=== PATIENT | female | born 1950 | race Caucasian/White ===

== ENCOUNTER 2017-03-22 13:22 | Inpatient (IN) | payer OTHER ==
--- NOTE | ~2017-03-22 | OP ---
Record Of Operation [facility] [address] [place]. 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 POSTOPERATIVE DIAGNOSES: 1. Right SFA mid segment 95% obstruction. 2. Right profunda femoral artery pseudoaneurysm, incidental finding. PROCEDURES: 1. Abdominal aortogram with right lower extremity runoff. 2. Superselective catheterization of the right SFA and popliteal artery with direct arteriography. 3. Atherectomy of the right SFA followed by a 5 x 6 angioplasty and 6 x 60 smart stent. 4. Catheterization of the profunda femoral artery with angiography and a 5 x 50 Viabahn stent. ANESTHESIA: Local MAC. COMPLICATIONS: None. INDICATION FOR PROCEDURE: Secondary to this very pleasant female presenting with evidence of severe peripheral vascular disease of the right lower extremity. Recommendations were made for arteriography to further define this and repair this if appropriate. Risks and benefits were discussed. Consent was obtained. DETAILS OF PROCEDURE: The patient was brought to the endovascular operating room, placed in supine position, prepped and draped in routine sterile fashion to the bilateral groin region, the entire right lower leg. The left superficial margin was catheterized with a micropuncture needle followed by a wire and a sheath arteriogram. The catheter was then advanced into the abdominal aorta, and AP abdominal aortogram was performed showing a widely patent infrarenal aorta, patent common external iliac arteries bilaterally. The catheter was then advanced from the left side of the right common femoral. Arteriogram demonstrated widely patent proximal superficial femoral artery. However, in the mid to distal segment, there was evidence of a large plaque spiraling in nature with a critical 95% obstruction. 3000 units of heparin was given and allowed to circulate. Arteriogram demonstrated continued stenosis. A wire was passed across this area. Atherectomy was then performed followed by a 5 x 6 angioplasty. Completion imaging showed a spiraling dissection of this area and a stent was indicated, and a 6 x 60 smart stent was passed, positioned and deployed adequately reconstructing the segment. With this completed, with the ACU catheter, performed additional arteriogram proximally and noted evidence of a fairly large profunda femoral artery, and a pseudoaneurysm which was an incidental finding. This was then catheterized and measurements were taken. A 5 x 50 Viabahn stent was passed, positioned and deployed adequately reconstructing the main profunda femoral artery and blocking the pseudoaneurysm. At this point, wires, catheters, and sheaths were removed. The left groin Record Of [facility] [address] [facility] [place]. [address] NAME: CHINA BONNER : 52 STATUS : DIS IN PAT#: [id number] AGE: 66 ADM/REG DATE : 03/22/17 MR#: [id number] REPORT SERV DATE: 06/02/17 DICTATED BY: BRADY MACIAS DATE: 06/02/17 REPORT STATUS : Draft TRANSCRIBED BY: YOCASTA DATE: 06/02/17 was then closed with a [employer]. ROBERT/YOCASTA Brady Macias M.D. / [id number] CC: Jorje García M.D.
--- NOTE | ~2017-03-22 | DS ---
Discharge Summary [facility] [address] [place]. [address] NAME: CHINA BONNER : 52 STATUS : DIS IN PAT#: [id number] AGE: 66 ADM/REG DATE : 03/22/17 MR#: [id number] REPORT SERV DATE: 04/04/17 DICTATED BY: BRADY MACIAS DATE: 04/04/17 REPORT STATUS : Draft TRANSCRIBED BY: YOCASTA DATE: 04/04/17 Data Collection from hospitalization DISCHARGE DIAGNOSIS(ES): 1. Right groin pseudoaneurysm. 2. Hypertension. 3. Congestive heart failure. 4. Chronic obstructive pulmonary disease/bronchitis. 5. Hiatal hernia. 6. Tobacco use. 7. Hyperlipidemia. 8. Anxiety and depression. CONSULTATIONS: None. PROCEDURES PERFORMED: 1. Abdominal aortogram, atherectomy, percutaneous right distal superficial femoral artery, V[employer] right distal superficial femoral artery, stent placement right proximal superficial femoral artery, 03/24/2017. 2. Venous Doppler ultrasound of the right groin, 03/22/2017. 3. Focused ultrasound examination, right inguinal region, 03/23/2017. 4. Right groin Doppler ultrasound, 03/24/2017. MEDICATIONS: ProAir two puffs via inhaler as needed, aspirin 81 mg daily, Plavix 75 mg daily, Prozac 10 mg daily, Cozaar 25 mg daily, Toprol-XL 12.5 mg daily, and fish oil 1200 mg daily. CONDITION AT DISCHARGE: Stable. DISPOSITION: The patient was discharged home on an 1800-calorie cardiac/diabetic diet with activities as instructed. She would follow up with me as instructed. HOSPITAL COURSE: This is a 66-year-old female who presented with a chief complaint of swelling in the groin. She is status post a surgical procedure and developed swelling from her groin after ambulating to the bathroom twice. She was neurologically intact. Her lungs were clear. The right groin was swollen. She was given Percocet for pain. A venous Doppler ultrasound of the right lower extremity/right groin was performed. She had a small 5 x 7 mm pseudoaneurysm anterior to the right common femoral artery with a 2 mm diameter and length neck of the pseudoaneurysm. The patient had undergone a cardiac catheterization. Focussed ultrasound examination of the right inguinal region had shown small 1.2 x 0.7 cm pseudoaneurysm anterior to the right common femoral artery with 3 mm width of the neck and 3 mm length of the neck. On 03/24/2017, she underwent recheck of right groin pseudoaneurysm, right groin Doppler ultrasound was performed. It revealed similar appearance of the right groin pseudoaneurysm measuring up to 1.8 x 0.8 cm with neck measuring up to 0.22 cm in width x 0.28 cm in length. Treatment options were discussed, and it was elected to proceed with surgical intervention. She was taken to the endovascular operating room where she underwent the above-mentioned procedure. She tolerated this well. There were no complications. Discharge planning was performed. On 03/25/2017, she was alert and sitting up. She did Discharge Summary [place] [id number] [facility] [place]. [address] NAME: CHINA BONNER : 52 STATUS : DIS IN PAT#: [id number] AGE: 66 ADM/REG DATE : 03/22/17 MR#: [id number] REPORT SERV DATE: 04/04/17 DICTATED BY: BRADY MACIAS DATE: 04/04/17 REPORT STATUS : Draft TRANSCRIBED BY: YOCASTA DATE: 04/04/17 complain of some gastroesophageal reflux disease. The right and left groin were bandaged. She had 2+ dorsalis pedis pulses bilaterally. She could move her toes. The IV was going to be removed. We would remove the groin dressing and place a Band-Aid. Discharge instructions were given. Due to her improved and stable condition, she was discharged home with the above-stated instructions. Information collected by: Carli Posey I submit the above information as my discharge summary. TG/MODL Brady Macias M.D. / [id number] CC: Jorje García M.D.
[2017-03-22 11:49] LABS: BASOPHILS 0.6 %; BASOPHILS ABSOLUTE 0.04 10/3/uL (0.0-0.16); EOSINOPHILS 1.9 %; EOSINOPHILS ABSOLUTE 0.12 10/3/uL (0.0-0.53); HEMATOCRIT 41.7 % (36.0-48.0); HEMOGLOBIN 14.3 g/dL (12.0-16.0); IMMATURE GRANULOCYTES 0.2 %; IMMATURE GRANULOCYTES ABSOLUTE 0.01 10/3/uL (0.0-0.11); LYMPHOCYTES 26.9 %; LYMPHOCYTES ABSOLUTE 1.74 10/3/uL (0.67-4.30); MEAN CORPUS HGB CONC 34.3 g/dL (32.0-36.0); MEAN CORPUSCULAR HEMOGLOB 31.6 pg (26.0-34.0); MEAN CORPUSCULAR VOLUME 92.3 fL (80-100); MEAN PLATELET VOLUME 9.3 fL (9.2-13.0); MONOCYTES 10.2 %; MONOCYTES ABSOLUTE 0.66 10/3/uL (0.21-1.20); NEUTROPHILS 60.2 %; PLATELET COUNT 257 10/3/uL (150-400); RED CELL COUNT 4.52 10/6/uL (4.0-5.6); WHITE BLOOD CELLS 6.5 10/3/uL (4.5-10.5)
[2017-03-22 11:50] LABS: MANUAL DIFF NO %
[2017-03-22 12:01] LABS: PROTIME (NOT ORD) 13.3 SEC (12.0-14.5)
[2017-03-22 12:02] LABS: BUN (BLOOD UREA NITROGEN) 13 MG/DL (6-23); CALCIUM, SERUM 9.4 MG/DL (8.5-10.4); CHLORIDE, SERUM 109 MMOL/L (96-112); CO2 (CARBON DIOXIDE) 28 MMOL/L (24-34); CREATININE 0.72 MG/DL (0.55-1.02); GFR AFRICAN AMERICAN 102 ML/MIN (>=60); GFR NON AFRICAN AMERICAN 88 ML/MIN (>=60); GLUCOSE, SERUM 103 MG/DL (60-99); POTASSIUM, SERUM 4.5 MMOL/L (3.5-5.3); SODIUM, SERUM 143 MMOL/L (135-148)
[~2017-03-22 13:22] MED LIST: ASAB PO; FISH OIL1200 MG PO; IMDUR30 PO; KLONO5 PO; PRIN5 PO; PROZ10 PO; TOPXL25 PO
[2017-03-22] MEDS ORDERED: PLAVIX PO (15:57)
[2017-03-22] MEDS ORDERED: PROAIR HFA INH (15:58)
[2017-03-22] MEDS ORDERED: COZ25 PO (15:58)
[2017-03-23 06:25] LABS: BASOPHILS 0.6 %; BASOPHILS ABSOLUTE 0.04 10/3/uL (0.0-0.16); EOSINOPHILS 2.3 %; EOSINOPHILS ABSOLUTE 0.16 10/3/uL (0.0-0.53); HEMATOCRIT 40.8 % (36.0-48.0); HEMOGLOBIN 13.4 g/dL (12.0-16.0); IMMATURE GRANULOCYTES 0.3 %; IMMATURE GRANULOCYTES ABSOLUTE 0.02 10/3/uL (0.0-0.11); LYMPHOCYTES 25.9 %; LYMPHOCYTES ABSOLUTE 1.82 10/3/uL (0.67-4.30); MANUAL DIFF NO %; MEAN CORPUS HGB CONC 32.8 g/dL (32.0-36.0); MEAN CORPUSCULAR HEMOGLOB 30.8 pg (26.0-34.0); MEAN CORPUSCULAR VOLUME 93.8 fL (80-100); MEAN PLATELET VOLUME 9.4 fL (9.2-13.0); MONOCYTES 9.8 %; MONOCYTES ABSOLUTE 0.69 10/3/uL (0.21-1.20); NEUTROPHILS 61.1 %; NEUTROPHILS ABSOLUTE 4.31 10/3/uL (2.02-8.40); PLATELET COUNT 254 10/3/uL (150-400); RBC DISTRIBUTION WIDTH 13.2 % (12.0-16.0); RED CELL COUNT 4.35 10/6/uL (4.0-5.6)
[2017-03-23 06:34] LABS: BUN (BLOOD UREA NITROGEN) 12 MG/DL (6-23); CALCIUM, SERUM 9.3 MG/DL (8.5-10.4); CHLORIDE, SERUM 107 MMOL/L (96-112); CO2 (CARBON DIOXIDE) 28 MMOL/L (24-34); CREATININE 0.75 MG/DL (0.55-1.02); GFR AFRICAN AMERICAN 97 ML/MIN (>=60); GFR NON AFRICAN AMERICAN 84 ML/MIN (>=60); GLUCOSE, SERUM 99 MG/DL (60-99); POTASSIUM, SERUM 4.7 MMOL/L (3.5-5.3); SODIUM, SERUM 139 MMOL/L (135-148)
[2017-03-25 05:50] LABS: BASOPHILS 0.5 %; BASOPHILS ABSOLUTE 0.04 10/3/uL (0.0-0.16); EOSINOPHILS 1.9 %; EOSINOPHILS ABSOLUTE 0.14 10/3/uL (0.0-0.53); HEMOGLOBIN 13.5 g/dL (12.0-16.0); IMMATURE GRANULOCYTES 0.3 %; IMMATURE GRANULOCYTES ABSOLUTE 0.02 10/3/uL (0.0-0.11); LYMPHOCYTES 24.9 %; LYMPHOCYTES ABSOLUTE 1.86 10/3/uL (0.67-4.30); MEAN CORPUS HGB CONC 32.9 g/dL (32.0-36.0); MEAN CORPUSCULAR HEMOGLOB 31.1 pg (26.0-34.0); MEAN CORPUSCULAR VOLUME 94.5 fL (80-100); MEAN PLATELET VOLUME 9.5 fL (9.2-13.0); MONOCYTES ABSOLUTE 0.52 10/3/uL (0.21-1.20); NEUTROPHILS 65.4 %; NEUTROPHILS ABSOLUTE 4.88 10/3/uL (2.02-8.40); PLATELET COUNT 250 10/3/uL (150-400); RBC DISTRIBUTION WIDTH 12.7 % (12.0-16.0); RED CELL COUNT 4.34 10/6/uL (4.0-5.6); WHITE BLOOD CELLS 7.5 10/3/uL (4.5-10.5)
[2017-03-25 05:54] LABS: MANUAL DIFF NO %
[2017-03-25 05:56] LABS: CALCIUM, SERUM 9.6 MG/DL (8.5-10.4); CHLORIDE, SERUM 105 MMOL/L (96-112); CO2 (CARBON DIOXIDE) 25 MMOL/L (24-34); CREATININE 0.73 MG/DL (0.55-1.02); GFR AFRICAN AMERICAN 100 ML/MIN (>=60); GFR NON AFRICAN AMERICAN 86 ML/MIN (>=60); GLUCOSE, SERUM 103 MG/DL (60-99); POTASSIUM, SERUM 4.4 MMOL/L (3.5-5.3); SODIUM, SERUM 138 MMOL/L (135-148)
[2017-03-25 05:58] LABS: BUN (BLOOD UREA NITROGEN) 17 MG/DL (6-23)
== END 2017-03-25 15:00 | disposition home or self-care (01) | DRG 272 ==
LOC: ER 13:22 → 2SO 16:36
PROVIDERS: Emergency Medicine; Nurse Practitioner; Specialist
PROC: 04CK3ZZ Extirpation of Matter from Right Femoral Artery, Percutaneous Approach (ICD-10-PCS; principal; 2017-03-24 18:45)
PROC: B41D1ZZ Fluoroscopy of Aorta and Bilateral Lower Extremity Arteries using Low Osmolar Contrast (ICD-10-PCS; 2017-03-24 18:45)
PROC: 047K3DZ Dilation of Right Femoral Artery with Intraluminal Device, Percutaneous Approach (ICD-10-PCS; 2017-03-24 18:45)
PROC: B41F1ZZ Fluoroscopy of Right Lower Extremity Arteries using Low Osmolar Contrast (ICD-10-PCS; 2017-03-24 18:45)
DX: I72.4 Aneurysm of artery of lower extremity (principal); I50.9 Heart failure, unspecified; J44.9 Chronic obstructive pulmonary disease, unspecified; I11.0 Hypertensive heart disease with heart failure; I25.10 Atherosclerotic heart disease of native coronary artery without angina pectoris; E11.9 Type 2 diabetes mellitus without complications; F17.210 Nicotine dependence, cigarettes, uncomplicated; Z95.5 Presence of coronary angioplasty implant and graft
CPT/HCPCS: 37227; 75625; 75710; 80048; 85025; 85610; 85730; 93005; 93926; 93971; 96374; 96375; 97161-GP; 99285; A9270-GY; C1724; C1725; C1769; C1874; C1876; C1894; J0690; J2405; J3010; Q9967